=== PATIENT | male | born 1985 | race African-American/Black ===

== ENCOUNTER 2016-08-10 09:24 | Emergency (ER) | payer OTHER ==
[2016-08-10 09:30] VITALS: BP 97/61; PULSE 78; TEMP 98; BMI 19.2
[2016-08-10] MEDS ORDERED: IBUPROFEN 400 MG TABLET (FP) PO ONE ×2 (10:27→10:30)
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
== END 2016-08-10 10:33 | disposition home or self-care (01) ==
LOC: JERFT 09:24
DX: S00.03XA Contusion of scalp, initial encounter (principal); F17.210 Nicotine dependence, cigarettes, uncomplicated; Y00.XXXA Assault by blunt object, initial encounter; Y93.89 Activity, other specified; Y92.118 Other place in children's home and orphanage as the place of occurrence of the external cause; Y99.0 Civilian activity done for income or pay
CPT/HCPCS: 99281-25

== ENCOUNTER → 2016-10-15 | Emergency (ER) | payer OTHER ==
[~2016-10-15] MED LIST: ONDANSETRON 4 MG/2 ML VIAL IVPB ONE; ONDANSETRON 4 MG/2 ML VIAL ONE; SODIUM CHLORIDE 1,000 ML IV ONE
[2016-10-15 14:09] VITALS: BMI 20.4
--- NOTE | 2016-10-15 15:21 | PDOC ---
History of Present Illness - General Chief Complaint: Nausea/Vomiting Stated Complaint: VOMITING/ABD Pain Time Seen by Provider: 10/15/16 15:20 History Source: Patient Exam Limitations: No Limitations - History of Present Illness Travel History: No Initial Comments: 10/15/16 15:48 31y M no pmhx persents with complaint of abd pain, n/v/d since today. 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 The pt endorses cramping abd ominal pain. he has had approx 5 episodes of water/green/yellow vomitus and7 episoes of water diarrhea. no associated fever/chills. no recent travel beside going to [place] no abd surgeries no recent abx Past History - Past Medical History Allergies/Adverse Reactions: Allergies Allergy/AdvReac Type Severity Reaction Status Date / Time No Known Allergies Allergy Verified 10/15/16 14:09 Home Medications: Ambulatory Orders Cyclobenzaprine HCl [Flexeril -] 10 mg PO TID PRN #21 tablet 12/15/13 Naproxen [EC-Naprosyn] 500 mg PO BID PRN #30 tablet.ec 12/15/13 Kidney Stones: Yes - Psycho/Social/Smoking Cessation Hx Anxiety: No Suicidal Ideation: No Smoking History: Never smoked Have you smoked in the past 12 months: No Number of Cigarettes Smoked Daily: 2 Information on smoking cessation initiated: No Hx Alcohol Use: No Drug/Substance Use Hx: No Substance Use Type: None Review of Systems - Review of Systems Able to Perform ROS?: Yes Comments:: 10/15/16 15:50 Constitutional - no reported Fever, Chills, HEENT: no reported vision changes, sore throat Respiratory: no reported cough, sob, hemoptysis Cardiac: no reported chest pain, palpitations, light headedness, leg swelling Abd/GI: + abd pain, nausea, vomiting, diarrhea no reported blood per rectum, melena : no reported dysuria, frequency, discharge Musculskelatal - no reported back pain, joint swelling skin - no reported bruising, erythema, rash neurological: no reported headache, numbness, focal weakness, tingling, ataxia, hematologic: no reported anemia, easy bruising, easy bleeding *Physical Exam - Vital Signs Last Vital Signs Temp Pulse Resp BP Pulse Ox 98.7 F 63 18 143/55 99 10/15/16 14:07 10/15/16 14:07 10/15/16 14:07 10/15/16 14:07 10/15/16 14:07 - Physical Exam Comments: 10/15/16 15:51 GENERAL: The patient is awake, alert, and fully oriented, Nontoxic - in no acute distress. HEAD: Normocephalic, atraumatic. EYES: extraocular movements intact, sclera anicteric, conjunctiva clear. ENT: Normal voice, dry mucous membranes. NECK: Normal range of motion, supple LUNGS: Breath sounds equal, clear to auscultation bilaterally. No wheezes, no rhonchi, no rales. HEART: Regular rate and rhythm, normal S1 and S2 without murmur, rub or gallop. ABDOMEN: Soft, nontender, normoactive bowel sounds. No guarding, no rebound. . No CVA tenderness EXTREMITIES: Normal range of motion, no edema. No clubbing or cyanosis. No cords, erythema, or tenderness. NEUROLOGICAL: No facial assymetry, Normal speech, PSYCH: Normal mood, normal affect. SKIN: Warm, Dry, normal turgor, ED Treatment Course - LABORATORY CBC & Chemistry Diagram: 10/15/16 15:50 10/15/16 15:50 Medical Decision Making - Medical Decision Making 10/15/16 15:51 likely gastroenteritis +drymm no focal tenderness to suggest localized peritonitis will give fluids, zofrn will ck basic labs will erassess 10/15/16 17:07 pt feeling improved labs reviewed and is unremarkble will dc with supportive care at home I discussed the physical exam findings, ancillary test results and final diagnoses with the patient. I answered all of the patient's questions. The patient was satisfied with the care received and felt comfortable with the discharge plan and treatment plan. The patient will call their primary care physician within 24 hours to arrange follow-up and will return to the Emergency Department with any new, persistent or worsening symptoms. *DC/Admit/Observation/Transfer Diagnosis at time of Disposition: Acute gastroenteritis - Discharge Dispostion Disposition: HOME Condition at time of disposition: Improved Admit: No - Referrals Referrals: [facility] [Provider Group] - Patient Instructions Printed Discharge Instructions: DI for Viral Gastroenteritis -- Adult Additional Instructions: Return to the emergency department immediately with ANY new, persistent or worsening symptoms including worsening abdominal pain, fevers, inability to tolerate oral intake, chest pain, shortness of breath or any other concerns. Stay well hydrated. You MUST call and follow up with your doctor tomorrow. Your emergency department visit is not complete without a followup with your doctor for reevaluation. Please make sure your doctor reviews the results of your emergency evaluation. - Post Discharge Activity Work/School Note: Back to Work
[2016-10-15 15:59] LABS: BASOPHIL 0.2 % (0-2.0); EOSINOPHIL 0.3 % (0-4.5); MCH 27.3 pg (25.7-33.7); MCHC 32.2 g/dl (32.0-35.9); MEAN CELL VOLUME 84.7 fl (80-96); MEAN PLT VOLUME 7.8 fl (7.5-11.1); NEUTROPHILS 86.6 % (42.8-82.8); PLATELET COUNT 173 K/MM3 (134-434); RDW 13.7 % (11.9-15.9); WHITE BLOOD COUNT 5.1 K/mm3 (4.0-10.0)
[2016-10-15 16:19] LABS: ALK PHOS 42 U/L (45-117); ANION GAP 8 (8-16); BILIRUBIN,TOTAL 0.8 mg/dL (0.2-1.0); CO2 26 mmol/L (21-32); CREATININE 0.9 mg/dL (0.7-1.3); GLUCOSE,RANDOM 73 mg/dL (74-106); SGOT/AST 18 U/L (15-37); SGPT/ALT 20 U/L (12-78); TOT PROT 6.7 g/dl (6.4-8.2)
[2016-10-15 17:28] VITALS: BP 123/80; PULSE 81; TEMP 98.2
== END | disposition home or self-care (01) ==
LOC: JER 13:56
PROC: 3E033GC Introduction of Other Therapeutic Substance into Peripheral Vein, Percutaneous Approach (ICD-10-PCS; principal; 2016-10-15)
PROC: 3E0337Z Introduction of Electrolytic and Water Balance Substance into Peripheral Vein, Percutaneous Approach (ICD-10-PCS; 2016-10-15)
DX: K52.9 Noninfective gastroenteritis and colitis, unspecified (principal)
CPT/HCPCS: 36415; 80053; 83690; 85025; 99283-25

== ENCOUNTER 2018-03-10 10:06 | Emergency (ER) | payer OTHER ==
[2018-03-10 10:25] VITALS: BP 115/74; PULSE 60; TEMP 98.5; BMI 20.5
[2018-03-10] MEDS ORDERED: IBUPROFEN 400 MG TABLET (FP) PO ONE ×2 (11:10→11:18)
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
== END 2018-03-10 12:12 | disposition home or self-care (01) ==
LOC: JERFT 10:06
DX: M25.532 Pain in left wrist (principal); W18.39XA Other fall on same level, initial encounter; Y93.89 Activity, other specified; Y92.159 Unspecified place in reform school as the place of occurrence of the external cause; Y99.0 Civilian activity done for income or pay
CPT/HCPCS: 73110-TC-LR-FY; 99281-25